=== PATIENT | male | born 1975 | race Caucasian/White ===

== ENCOUNTER → 2018-02-21 | Outpatient (REF) | payer OTHER | LOC: M SMT 13:54 | DX: Z30.09 Encounter for other general counseling and advice on contraception (principal) ==

== ENCOUNTER → 2018-04-26 | Outpatient (REF) | payer OTHER ==
[2018-04-26 09:59] LABS: MOTILE SPERM ABSENT (ABSENT); SEMEN APPEARANCE OPAQUE (OPAQUE); SEMEN VISCOSITY LIQUID (LIQUID); WBC CONCENTRATION >1 M/ml (<=1 M/ml)
[2018-04-26 10:00] LABS: IMMMOTILE SPERM CENTRIFUGED ABSENT (ABSENT); IMMOTILE SPERM PRESENT (ABSENT); MOTILE SPERM CENTRIFUGED ABSENT (ABSENT)
== END ==
LOC: M SMT 09:32
DX: Z98.52 Vasectomy status (principal)
CPT/HCPCS: 89321

== ENCOUNTER 2019-08-09 03:14 | Emergency (ER) | payer OTHER ==
[~2019-08-09] VITALS: Ht 170.2 cm; Wt 81.6 kg
[2019-08-09] MEDS ORDERED: ROBA750T4 PO (03:19)
[2019-08-09] MEDS ORDERED: IBUP80TA PO (03:19)
[2019-08-09] MEDS ORDERED: FLUO40CA PO (03:19)
[2019-08-09] MEDS ORDERED: NS 1,000 ML IV ONE (04:30)
[2019-08-09] MEDS ORDERED: ONDANSETRON 4MG/2ML VIAL (J2405) IV ONE (04:30)
[2019-08-09] MEDS ORDERED: lisinopriL 10 MG TAB PO ONE (06:15)
[2019-08-09 06:28] VITALS: BP 176/96
[2019-08-09] MEDS ORDERED: hydroCHLOROthiazide 12.5 MG CAPSULE PO ONE (06:30)
[2019-08-09] MEDS ORDERED: HYDR12.55 PO (06:47)
[2019-08-09] MEDS ORDERED: OXYC-517 PO (06:47)
[2019-08-09] MEDS ORDERED: OMEP-218 PO (06:47)
[2019-08-09] MEDS ORDERED: ONDA4TAB6 PO (08:12)
[2019-08-09 08:17] VITALS: BP 138/79
== END 2019-08-09 08:19 | disposition home or self-care (01) ==
LOC: M ED 03:14
DX: A08.11 Acute gastroenteropathy due to Norwalk agent (principal); F32.9 Major depressive disorder, single episode, unspecified; I10 Essential (primary) hypertension; E78.5 Hyperlipidemia, unspecified; Z79.899 Other long term (current) drug therapy
CPT/HCPCS: 80047; 87507; 87880; 96361; 96374; 99284; J2405